=== PATIENT | female | born 1980 | race Caucasian/White ===

== ENCOUNTER 2017-12-16 20:29 | Emergency (ER) | payer OTHER ==
[~2017-12-16] VITALS: Ht 167.6 cm; Wt 109.1 kg
[~2017-12-16 20:29] MED LIST: FLEXERIL5 MG PO; PROTONIX20 MG PO
[2017-12-16 23:16] VITALS: BP 140/96
== END 2017-12-16 23:16 | disposition home or self-care (01) ==
LOC: EME 20:29
DX: M25.562 Pain in left knee (principal); S80.212A Abrasion, left knee, initial encounter; V00.121A Fall from non-in-line roller-skates, initial encounter; Y93.51 Activity, roller skating (inline) and skateboarding; Z88.2 Allergy status to sulfonamides
CPT/HCPCS: 73564; 99281; 99283